=== PATIENT | female | born 1945 | race Caucasian/White ===

== ENCOUNTER 2017-02-14 11:52 | Inpatient (IN) ==
[2017-02-10 13:08] LABS: Appearance,Urine CLEAR; Bacteria,Urine 0 /hpf (0); Bilirubin,Urine NEG (NEG); Color,Urine YELLOW; Glucose,Urine (UA) NEGATIVE (NEG); Leukocyte Esterase,Urine 500 /uL (NEG); Mucus,Urine FEW /hpf (0); Nitrate,Urine NEG (NEG); Protein,Urine NEG (NEG); Specific Gravity,Urine 1.015 (1.000-1.035); Urine Blood NEG mg/dL (<0.03); Urine RBC 1 /hpf (0-1); Urine Squamous Epithelial Cell 3 /hpf (0-4); Urine WBC 5 /hpf (0-4); Urobilinogen,Urine NEG (NEG)
[2017-02-10 14:08] LABS: Basophils # (Auto) 0.1 K/mcL (0.0-0.3); Basophils % (Auto) 0.9 % (0.0-2.0); Eosinophils # (Auto) 0.1 K/mcL (0.0-0.7); Eosinophils % (Auto) 1.7 % (0.0-7.0); Granulocytes % (Auto) 60.2 % (38.0-78.0); Lymphocytes # (Auto) 1.5 K/mcL (1.5-4.8); Lymphocytes % (Auto) 26.6 % (15.5-49.0); Mean Corpuscular HGB Conc 33.4 g/dL (31.0-36.0); Mean Corpuscular Hemoglobin 28.4 pg (26.0-34.0); Monocytes # (Auto) 0.6 K/mcL (0.1-0.9); Monocytes % (Auto) 10.6 % (1.0-12.0); Platelet Count 215 K/mcL (140-440); RBC 4.97 M/mcL (4.00-5.20); Red Cell Distribution Width 13.8 % (11.5-14.5)
[2017-02-10 14:12] LABS: Blood Urea Nitrogen 18 mg/dl (8-23)
[~2017-02-14 11:52] MED LIST: CELECOXIB 200 MG CAPSULE PO SCH; KETOROLAC 30 MG, ROPIVACAINE HCL/PF 49.5 ML, EPINEPHrine 0.5 MG, 0.9 % SODIUM CHLORIDE ... IJ ONE; PREGABALIN 75 MG CAPSULE PO SCH; ceFAZolin 1 GM VIAL IV SCH; oxyCODONE 10 MG TAB.ER.12H PO SCH
[2017-02-14 13:00] LABS: Appearance,Urine CLEAR; Bacteria,Urine 0 /hpf (0); Bilirubin,Urine NEG (NEG); Color,Urine YELLOW; Glucose,Urine (UA) NEGATIVE (NEG); Leukocyte Esterase,Urine 75 /uL (NEG); Mucus,Urine MANY /hpf (0); Nitrate,Urine NEG (NEG); Protein,Urine NEG (NEG); Specific Gravity,Urine 1.025 (1.000-1.035); Urine Blood NEG mg/dL (<0.03); Urine RBC 1 /hpf (0-1); Urine Squamous Epithelial Cell 1 /hpf (0-4); Urine WBC 4 /hpf (0-4); Urobilinogen,Urine NEG (NEG)
[2017-02-14] MEDS ORDERED: GENTAMICIN SULFATE 800 MG/20 ML VIAL IR ONE (15:38)
[2017-02-14] MEDS ORDERED: EPINEPHrine 1 MG/ML ML IV ONE (16:00)
[2017-02-14] MEDS ORDERED: LIDOCAINE HCL/PF 100 MG/5 ML SYRINGE IV ONE (16:00)
[2017-02-14] MEDS ORDERED: ONDANSETRON 4 MG/2 ML VIAL IV ONE (16:00)
[2017-02-14] MEDS ORDERED: GLYCOPYRROLATE 0.2 MG/ML VIAL IV ONE (16:00)
[2017-02-14] MEDS ORDERED: MIDAZOLAM 5 MG/5 ML VIAL IV ONE (16:00)
[2017-02-14] MEDS ORDERED: PROPOFOL 200 MG/20 ML VIAL IV ONE (16:00)
[2017-02-14] MEDS ORDERED: TRANEXAMIC ACID 1,000 MG/10 ML VIAL IV ONE ×2 (16:00→17:34)
[2017-02-14] MEDS ORDERED: KETAMINE 100 MG/ML ML IV ONE (16:00)
[2017-02-14] MEDS ORDERED: BUPIVACAINE PF 0.5% 10 ML VIAL IJ ONE (16:00)
[2017-02-14] MEDS ORDERED: FLUMAZENIL 0.1 MG/ML ML IV PRN (16:50)
[2017-02-14] MEDS ORDERED: ACETAMINOPHEN 1,000 MG/100 ML BOTTLE IV ONE (16:50)
[2017-02-14] MEDS ORDERED: fentaNYL 100 MCG/2 ML VIAL IV PRN (16:50)
[2017-02-14] MEDS ORDERED: IPRATROPIUM/ALBUTEROL 3 ML AMPUL.NEB NEB PRN (16:50)
[2017-02-14] MEDS ORDERED: MEPERIDINE 25 MG/ML SYRINGE IV PRN (16:50)
[2017-02-14] MEDS ORDERED: NALOXONE HCL 0.4 MG/ML VIAL IV PRN (16:50)
[2017-02-14] MEDS ORDERED: LACTATED RINGERS 250 ML IV PRN (16:50)
[2017-02-14] MEDS ORDERED: ONDANSETRON 4 MG/2 ML VIAL IV PRN ×2 (16:50→17:34)
[2017-02-14] MEDS ORDERED: PROMETHAZINE 25 MG/ML VIAL IV PRN (16:50)
[2017-02-14] MEDS ORDERED: diphenhydrAMINE 50 MG/ML VIAL IV PRN (16:50)
[2017-02-14] MEDS ORDERED: BENZOCAINE/MENTHOL 1 LOZENGE PO PRN ×2 (16:50→17:34)
[2017-02-14] MEDS ORDERED: LACTATED RINGERS 1,000 ML IV SCH (17:00)
[2017-02-14] MEDS ORDERED: HYDROmorphone 2 MG/ML SYRINGE IV PRN (17:34)
[2017-02-14] MEDS ORDERED: FLEETS ADULT ENEMA PR PRN (17:34)
[2017-02-14] MEDS ORDERED: METHOCARBAMOL 750 MG TABLET PO PRN (17:34)
[2017-02-14] MEDS ORDERED: MAGNESIUM HYDROXIDE 30 ML ORAL.SUSP PO PRN (17:34)
[2017-02-14] MEDS ORDERED: ONDANSETRON ODT 4 MG TABLET SL PRN (17:34)
[2017-02-14] MEDS ORDERED: BISACODYL 10 MG SUPP.RECT PR PRN (17:34)
[2017-02-14] MEDS ORDERED: HYDROcodone/APAP 10/325MG TABLET PO PRN (17:34)
[2017-02-14] MEDS ORDERED: POLYETHYLENE GLYCOL 3350 17 GM PACKET PO PRN (17:34)
--- NOTE | 2017-02-14 17:34 | Brief Operative Note ---
Date of procedure: 02/14/17 Pre-op diagnosis: left knee oa Post-op diagnosis: same Procedure: left total knee arthroplasty Grafts/Implants: Yes Anesthesia: spinal Complications: none Surgeon: Arben Chappell Asset Protection Manager: Jeanine Hoover Estimated blood loss (cc): 100 Tourniquet Time (Minutes): 52 Specimens Removed/Pathology: none sent Condition: stable Disposition: PACU
[2017-02-14] MEDS: 0.9 % SODIUM CHLORIDE 1,000 ML IV SCH (18:46)
[2017-02-14] MEDS: KETOROLAC 15 MG/ML VIAL IV SCH ×2 (19:22→19:28)
[2017-02-14] MEDS ORDERED: LORazepam 1 MG TABLET PO SCH (21:00)
[2017-02-14] MEDS ORDERED: VENLAFAXINE 37.5 MG TAB.ER.24H PO SCH (21:00)
[2017-02-14] MEDS ORDERED: SENNOSIDES 1 TABLET PO SCH (21:00)
[2017-02-14] MEDS: ASPIRIN 325 MG ENTERIC COATED TABLET PO SCH (21:12)
[2017-02-14] MEDS: DOCUSATE SODIUM 100 MG CAPSULE PO SCH (21:13)
[2017-02-14] MEDS: 0.9 % SODIUM CHLORIDE 10 ML SYRINGE IV SCH (23:24)
[2017-02-14] MEDS: ceFAZolin 1 GM VIAL IV SCH (23:24)
[2017-02-15] MEDS: KETOROLAC 15 MG/ML VIAL IV SCH ×3 (01:12→14:09)
[2017-02-15] MEDS: 0.9 % SODIUM CHLORIDE 1,000 ML IV SCH (02:00)
[2017-02-15] MEDS: 0.9 % SODIUM CHLORIDE 10 ML SYRINGE IV SCH (06:22)
[2017-02-15] MEDS: ceFAZolin 1 GM VIAL IV SCH (06:22)
--- NOTE | 2017-02-15 07:02 | Discharge Summary ---
Providers - Providers Patient information: Note initiated : 02/15/17 at 7:00 am Service Date, if different from initiated Date: [] Patient: Lynn Reyes 71 y/o F admitted on 02/14/17 for Left Total Knee Arthroplasty. Chief Complaint: [s/p left TKA POD #1 s/p left TKA. Patient is doing well this morning. She ambulated ok to the bathroom and reports very minimal pain in her lower extremities. She denies CP, SOB, numbness, tingling, calf pain. She has no questions or concerns.] Discharge date: 02/15/17 Hospitalization Hospital course: Patient was brought to the OR yesterday for left TKA which went on without complication. She was admitted overnight for observation and pain control and had no events during her stay. She will d/c to home today and follow up in clinic in 2 weeks. Discharge diagnosis: knee osteoarthritis Exam - Exam Incision healing: Yes Incision draining: No Incision red: No Incision swollen: No Incision inflamed: No Clean and dry: Yes Weight bearing status: as tolerated Range of motion: b/l ankles/feet/rt knee full AROM. Lt knee 5/30 Ortho Discharge - TKA - Patient Instructions Diet: Regular Diet Activity: activity as tolerated, ambulate with assistive device, weight bearing as tolerated Total Knee Protocol: For Total Knee: Start ROM GATO with stationary bike or rocking chair. Work on gaining full extension of knee. Posterior dislocation precautions provided. Hip abductor strengthening and gait training instructions provided. Apply Cryocuff as instructed. Dressing Care: Other (May shower tomorrow- remove SANGEETA/gauze, leave Dermabond patch in place. Let water run off patch, pat dry- replace gauze/SANGEETA) - Follow Up Plan Follow Up Appointments: Jeanine Hoover PA-C [Physician Head Waitress] - 03/01/17 9:00 am Disposition: Home, Self-Care Prognosis: Fair Rehab Potential: Fair Overall status at discharge: patient is progressing back to baseline - Orders For Discharge Prescriptions: Aspirin [Ecotrin] 325 mg PO BID #60 tab.ec HYDROcodone/APAP 10/325MG [Vaughn 10/325Mg] 1 - 2 tab PO Q4HP PRN #60 tab PRN Reason: Pain Level 3-6 Additional Discharge Orders: Physical Therapy at Discharge - TKA Location: Determined By Patient Walker Location: Determined By Patient Pending Studies Resuscitation Status Full Code Diet Regular Diet Start MonFeb 14 Dinner Aspirin (Ecotrin) 325 mg PO BID [facility] Last Admin: 02/14/17 21:12 Dose: 325 mg Docusate Sodium (Colace) 100 mg PO BID [facility] Last Admin: 02/14/17 21:13 Dose: 100 mg Sodium Chloride (Sodium Chloride 0.9%) 1,000 mls @ 125 mls/hr IV .Q8H [facility] Last Admin: 02/15/17 02:00 Dose: Infusion: 02/15/17 02:00 Dose: 0 mls/hr Admin: 02/14/17 18:46 Dose: 125 mls/hr Ketorolac Tromethamine (Toradol) 15 mg IV Q6 [facility] Stop: 02/16/17 12:01 Last Admin: 02/15/17 06:22 Dose: 15 mg Admin: 02/15/17 01:12 Dose: 15 mg Admin: 02/14/17 19:28 Dose: 15 mg Lorazepam (Ativan) 1 mg PO [facility] Last Admin: 02/14/17 21:13 Dose: 1 mg Senna (Senokot) 2 tab PO [facility] Last Admin: 02/14/17 21:12 Dose: 2 tab Sodium Chloride (Saline Flush) 10 ml IV Q8 [facility] Last Admin: 02/15/17 06:22 Dose: 10 ml Admin: 02/14/17 23:24 Dose: Not Given Venlafaxine HCl (Effexor Xr) 37.5 mg PO [facility] Last Admin: 02/14/17 21:20 Dose: 37.5 mg Shift Summary 02/15/17 03:50 Shift Summary by Seble Montano Patient is a mod assist with FWW to BSC. She did not c/o pain but was given her scheduled Toradol with some relief. Patient was unable to void at beginning of shift. She has voided 300ml and 500ml with PVR 355. Last void at 0300. She has been bladder scanned per protocol. She states she has all feeling now. IV was SL right hand. She tolerated diet w/o difficulty. left knee dressing CDI with some 2+ swelling noted. Patient is pleasant and cooperative. Initialized on 02/15/17 03:50 - END OF NOTE Exam Vital signs: Temp Pulse Resp BP Pulse Ox 97.5 F 68 16 144/71 95 02/15/17 03:09 02/15/17 03:09 02/15/17 03:09 02/15/17 03:09 02/15/17 03:09 Constitutional: no acute distress Cardiovascular: other (DP/PT pulses 2+ b/l. B/l LE NVI) Neurologic: sensation intact to touch, other (motor grossly intact) Psychiatric: oriented to person, place and time
--- NOTE | 2017-02-15 07:08 | Operative Note ---
DATE OF OPERATION: 02/14/2017 PREOPERATIVE DIAGNOSIS: Degenerative joint disease, left knee. POSTOPERATIVE DIAGNOSIS: Degenerative joint disease, left knee. PROCEDURE: Left total knee arthroplasty. SURGEON: Isi Chappell M.D. GED TEACHER SURGEON: Jeanine Hoover PA-C ANESTHESIA: Spinal with LMA assist. ESTIMATED BLOOD LOSS: 100 mL COMPLICATIONS: None noted. SPECIMENS REMOVED: None. DRAINS: None. TOURNIQUET TIME: 52 minutes at 300 mmHg. IMPLANTS: DePuy CMW2 gentamycin bone cement 20 grams x4, DePuy Attune posterior stabilized size 5 left narrow, DePuy Attune tibial insert fixed bearing posterior stabilized size 5, 7 mm AOX, DePuy Attune tibial base fixed bearing size 4 cemented, DePuy Attune patella medialized dome 38 mm cemented AOX. INDICATIONS: The patient has had a long-standing history of worsening pain in the knee that has failed conservative treatment. Radiographs have confirmed advanced degenerative joint disease. After a long discussion about treatment options, the patient elected to proceed with a knee arthroplasty. The risks and benefits were discussed with the patient in detail including, but not limited to, the risks of anesthesia, problems with the heart or lungs related to anesthesia, infection, compromise or injury to the nerves and blood vessels, deep venous thrombosis, pulmonary embolism, pneumonia, continued pain after surgery, worsening pain or symptoms after surgery, swelling, loss of motion, instability, leg length discrepancy, and need for repeat surgery. DESCRIPTION OF PROCEDURE: The patient was seen in the pre-anesthesia waiting room where all questions were answered and the correct side and site were identified and marked. The patient was transferred to the operating room and administered the anesthetic and given pre-operative antibiotics. A time-out was then called. The extremity was prepped and draped, exsanguinated, and the tourniquet was inflated to 300 mmHg. A midline skin incision was then made with a standard medial parapatellar arthrotomy. Debridement of the menisci, ACL, and PCL was performed followed by balancing releases in the medial lateral plane. We then established intramedullary access to both the femur and tibia in a standard fashion. The femoral guide carter was initially placed with the distal femoral guide, pinned into place, and the distal femoral cut was performed and checked with a flat plate. We then turned our attention to the tibia. The intramedullary guide was placed with the proximal tibial cutting block. The block was appropriately positioned off the affected side, varus and valgus was checked with the extra-medullary guide, and the block was pinned into place. The proximal tibial cut was performed and the tibia was prepared for the tibial implant with appropriate rotation. The tibia, femur, and posterior compartment were debrided of osteophytes, loose bodies, and meniscal fragments We then used the gap balancing technique to balance extension with the first two cuts and good balancing was obtained with a 10 millimeter gap block. We turned our attention back to the femur and used the referencing block and implant to size appropriately. Using the gap balancing technique for the flexion space we set our rotation of the femur off the tibial cut. Anesthesia gave the patient 1 gram of Tranexamic Acid via an intravenous route. We placed the 4 in 1 cutting block and made anterior, posterior, and chamfer cuts. Box plasty cuts were then made in a standard fashion for the posterior stabilized prosthesis. We then completed osteophyte release and posterior capsule release from the posterior compartment. Trials were placed and we chose the polyethylene insert thickness that provided the best stability in all planes. With the trials in place, we did a measured resection for a resurfacing patella. We sized the patella and placed the patella trial and performed a lateral facetectomy with the saw and rongeur. Good tracking was obtained. We removed all trials, irrigated and dried all cut surfaces. We cemented the components into place including tibia, femur and patella. We placed a trial liner and held the knee in full extension with the patella compressed while the cement cured. We then removed all excess cement and placed the final polyethylene tibiofemoral component. Irrigation with 3 liters of antibiotic saline was then performed using jet-lavage. We let the tourniquet down and coagulated bleeding vessels. We injected a 100 cubic centimeter volume including Ropivacaine 49.25 cubic centimeters at 5 milligrams per cubic centimeter, Ketorolac 30 milligrams, and Epinephrine 0.5 milligrams into 100 cubic centimeters volume of normal saline. We closed the retinaculum with #2 Stratafix. We closed the subcutaneous tissue and skin in layers out to roxana in the skin. A sterile pressure dressing was applied. All needle and sponge counts were correct. The patient was transferred to the recovery room in stable condition. NOE:kenton Job ID: [id number] Doc ID: [id number] Isi Chappell MD
[2017-02-15] MEDS ORDERED: LEVOTHYROXINE 25 MCG TABLET PO SCH (07:30)
--- NOTE | 2017-02-15 07:38 | XRay Report ---
CLINICAL INFORMATION: Postop total knee prostheses COMPARISON: None. FINDINGS: Total knee prostheses is anatomically aligned. There is no osseous abnormality. Particular gas and soft tissue swelling seen as expected IMPRESSION: Negative Interpreted and Authenticated by: Arben Mandel 02/15/17
[2017-02-15] MEDS: DOCUSATE SODIUM 100 MG CAPSULE PO SCH (08:30)
[2017-02-15] MEDS: ASPIRIN 325 MG ENTERIC COATED TABLET PO SCH (08:30)
== END 2017-02-15 14:00 | disposition home or self-care (01) | DRG 470 ==
LOC: MEDSUR 11:52
PROVIDERS: ADMIT Orthopaedic Surgery Sports Medicine; ATTEND Orthopaedic Surgery Sports Medicine

== ENCOUNTER 2018-09-17 07:30 | Inpatient (IN) ==
[2018-09-12 12:14] LABS: Appearance,Urine CLEAR; Bacteria,Urine 0 /hpf (0); Bilirubin,Urine NEG (NEG); Color,Urine YELLOW; Culture Indicated,Urine NO; Glucose,Urine (UA) NEGATIVE (NEG); Ketones,Urine NEG (NEG); Leukocyte Esterase,Urine 75 /uL (NEG); Mucus,Urine FEW /hpf (0); Nitrate,Urine NEG (NEG); Protein,Urine NEG (NEG); Specific Gravity,Urine 1.018 (1.000-1.035); Urine Blood NEG mg/dL (<0.03); Urine RBC 1 /hpf (0-1); Urine Squamous Epithelial Cell 1 /hpf (0-4); Urine Transitional Epi Cells < 1 /hpf (0-2); Urine WBC 1 /hpf (0-4); Urobilinogen,Urine NEG (NEG)
[2018-09-12 12:26] LABS: Blood Urea Nitrogen 20 mg/dl (8-23); Calcium 9.8 mg/dl (8.6-10.4); Carbon Dioxide 22 mmol/L (22-30); Chloride 105 mmol/L (96-108); Glomerular Filtration Rate 73; Glucose 87 mg/dL (70-105)
[2018-09-12 12:54] LABS: Basophils # (Auto) 0 K/mcL (0.0-0.3); Basophils % (Auto) 0.5 % (0.0-2.0); Eosinophils # (Auto) 0.1 K/mcL (0.0-0.7); Eosinophils % (Auto) 2.2 % (0.0-7.0); Granulocytes % (Auto) 56.7 % (38.0-78.0); Hematocrit 41.3 % (36.0-48.0); Hemoglobin 13.1 g/dL (12.0-15.0); Lymphocytes # (Auto) 1.6 K/mcL (1.5-4.8); Lymphocytes % (Auto) 29.6 % (15.5-49.0); Mean Cell Volume 83.6 fL (80.0-100.0); Mean Corpuscular HGB Conc 31.8 g/dL (31.0-36.0); Mean Platelet Volume 10.1 fL (7.4-10.4); Monocytes # (Auto) 0.6 K/mcL (0.1-0.9); Platelet Count 233 K/mcL (140-440); RBC 4.94 M/mcL (4.00-5.20); Red Cell Distribution Width 15.1 % (11.5-14.5); WBC 5.4 K/mcL (4.5-11.0)
[~2018-09-17 07:30] MED LIST changes: +0.9 % SODIUM CHLORIDE 9 ML, KETOROLAC 30 MG, ROPIVACAINE HCL/PF 49.5 ML, EPINEPHrine 0.... IJ SCH; +ACETAMINOPHEN 500 MG TABLET PO SCH; +IPRATROPIUM/ALBUTEROL 3 ML AMPUL.NEB NEB PRN; -KETOROLAC 30 MG, ROPIVACAINE HCL/PF 49.5 ML, EPINEPHrine 0.5 MG, 0.9 % SODIUM CHLORIDE ... IJ ONE; +SCOPOLAMINE 1 PATCH PATCH TOPICAL PRN; -ceFAZolin 1 GM VIAL IV SCH; +ceFAZolin 2 GM in DEXTROSE 5% IN WATER 50 ML IV SCH
[2018-09-17] MEDS ORDERED: ONDANSETRON 4 MG/2 ML VIAL ONE (15:27)
[2018-09-17] MEDS ORDERED: MIDAZOLAM 2 MG/2 ML VIAL ONE (15:27)
[2018-09-17] MEDS ORDERED: DEXAMETHASONE 10 MG/ML VIAL ONE (15:27)
[2018-09-17] MEDS ORDERED: KETAMINE 10 MG/ML ML ONE (15:27)
[2018-09-17] MEDS ORDERED: LIDOCAINE HCL/PF 100 MG/5 ML SYRINGE IV ONE (15:27)
[2018-09-17] MEDS ORDERED: ePHEDrine 50 MG/ML AMPUL IV ONE (15:27)
[2018-09-17] MEDS ORDERED: PROPOFOL 200 MG/20 ML VIAL IV ONE (15:27)
[2018-09-17] MEDS ORDERED: GENTAMICIN SULFATE 800 MG/20 ML VIAL IR ONE (15:51)
--- NOTE | 2018-09-17 17:02 | Brief Operative Note ---
Date of procedure: 09/17/18 Pre-op diagnosis: Right knee djd severe Post-op diagnosis: same Procedure: Right tka with nanda robot Grafts/Implants: Yes Anesthesia: ZHANE Surgeon: Pete Allred Seo Intern: Edawrd Britton Estimated blood loss (cc): 51 Tourniquet Time (Minutes): 56 Specimens Removed/Pathology: none sent Condition: stable Disposition: PACU
[2018-09-17] MEDS ORDERED: BISACODYL 10 MG SUPP.RECT PR PRN (17:03)
[2018-09-17] MEDS ORDERED: ACETAMINOPHEN 325 MG TABLET PO PRN (17:03)
[2018-09-17] MEDS ORDERED: MAGNESIUM HYDROXIDE 30 ML ORAL.SUSP PO PRN (17:03)
[2018-09-17] MEDS ORDERED: HYDROmorphone 2 MG/ML VIAL IV PRN (17:03)
[2018-09-17] MEDS ORDERED: TRANEXAMIC ACID 1,000 MG/10 ML VIAL IV ONE (17:03)
[2018-09-17] MEDS ORDERED: TEMAZEPAM 15 MG CAPSULE PO PRN (17:03)
[2018-09-17] MEDS ORDERED: BENZOCAINE/MENTHOL 1 LOZENGE PO PRN ×2 (17:03→18:07)
[2018-09-17] MEDS ORDERED: ONDANSETRON 4 MG/2 ML VIAL IV PRN ×2 (17:03→18:07)
[2018-09-17] MEDS ORDERED: FLEETS ADULT ENEMA PR PRN (17:03)
[2018-09-17] MEDS ORDERED: POLYETHYLENE GLYCOL 3350 17 GM PACKET PO PRN (17:03)
[2018-09-17] MEDS ORDERED: METHOCARBAMOL 1,000 MG/10 ML VIAL IV PRN (18:07)
[2018-09-17] MEDS ORDERED: FLUMAZENIL 0.1 MG/ML ML IV PRN (18:07)
[2018-09-17] MEDS ORDERED: fentaNYL 100 MCG/2 ML VIAL IV PRN (18:07)
[2018-09-17] MEDS ORDERED: LACTATED RINGERS 250 ML IV PRN (18:07)
[2018-09-17] MEDS ORDERED: MEPERIDINE 25 MG/ML SYRINGE IV PRN (18:07)
[2018-09-17] MEDS ORDERED: NALOXONE HCL 0.4 MG/ML VIAL IV PRN (18:07)
[2018-09-17] MEDS ORDERED: IPRATROPIUM/ALBUTEROL 3 ML AMPUL.NEB NEB PRN (18:07)
[2018-09-17] MEDS ORDERED: LACTATED RINGERS 1,000 ML IV SCH (18:15)
[2018-09-17] MEDS: 0.45 % SODIUM CHLORIDE 1,000 ML IV SCH (18:50)
--- NOTE | 2018-09-17 18:54 | XRay Report ---
CLINICAL INFORMATION: Post-Op Total Knee COMPARISON: None. FINDINGS: Total knee prostheses is anatomically aligned. No osseous abnormality. Soft tissue swelling. IMPRESSION: Negative Interpreted and Authenticated by: Arben Mandel 09/17/18
[2018-09-17] MEDS: KETOROLAC 15 MG/ML VIAL IV SCH ×2 (20:26→23:35)
[2018-09-17] MEDS: DOCUSATE SODIUM 100 MG CAPSULE PO SCH (20:27)
[2018-09-17] MEDS: ASPIRIN 325 MG ENTERIC COATED TABLET PO SCH (20:27)
[2018-09-17] MEDS ORDERED: SENNOSIDES 1 TABLET PO SCH (21:00)
[2018-09-17] MEDS: oxyCODONE/APAP 5/325MG TABLET PO PRN (21:47)
[2018-09-17] MEDS: ceFAZolin 1 GM VIAL IV SCH (23:34)
[2018-09-17] MEDS: 0.9 % SODIUM CHLORIDE 10 ML SYRINGE IV SCH (23:35)
[2018-09-18] MEDS: oxyCODONE/APAP 5/325MG TABLET PO PRN ×4 (03:31→15:40)
[2018-09-18] MEDS: 0.45 % SODIUM CHLORIDE 1,000 ML IV SCH ×2 (03:35→14:27)
[2018-09-18] MEDS: ceFAZolin 1 GM VIAL IV SCH (06:05)
[2018-09-18] MEDS: KETOROLAC 15 MG/ML VIAL IV SCH ×2 (06:05→11:07)
[2018-09-18] MEDS: 0.9 % SODIUM CHLORIDE 10 ML SYRINGE IV SCH ×2 (06:06→14:29)
--- NOTE | 2018-09-18 06:47 | Orthopedic Progress Note ---
Subjective Patient information: Note initiated : 09/18/18 at 6:45 am Service Date, if different from initiated Date: [] Patient: Lynn Reyes 73 y/o F admitted on 09/17/18 for Right Total Knee Arthroplasty [facility] . Chief Complaint: [right knee pain] Interval history: Pt is a 73 yo female POD#1 following Right TKA. OVerall doing well this AM. Using CPM machine currently. Has been up walking using the walker. Denies SOB, CP, N/V, abd pain, calf tenderness. Pertinent ROS: negative except per HPI. Objective Vital signs: Vital Signs Temp Pulse Resp BP BP Pulse Ox 09/18/18 06:44 93 09/18/18 03:33 97.3 F 83 12 124/70 95 09/17/18 22:07 96.7 F L 76 12 131/68 96 09/17/18 21:33 79 136/76 95 09/17/18 20:32 72 148/71 97 09/17/18 20:02 73 149/73 94 09/17/18 19:32 74 154/73 92 09/17/18 19:17 65 148/81 94 09/17/18 19:02 68 154/76 83 L 09/17/18 18:47 65 162/72 94 09/17/18 18:32 96.3 F L 64 12 139/76 97 09/17/18 18:22 68 19 132/61 98 09/17/18 18:12 67 16 146/62 100 09/17/18 18:02 72 16 143/62 100 09/17/18 17:52 73 12 136/63 100 09/17/18 17:47 75 21 138/67 100 09/17/18 17:42 82 16 145/63 91 09/17/18 17:37 97.4 F 86 14 145/63 95 09/17/18 11:00 98.1 F 69 18 112/73 94 Intake and Output 09/17/18 09/18/18 09/18/18 21:59 05:59 13:59 Intake Total 1850 1115 Output Total 645 400 Balance 1205 715 Intake: IV 875 Sodium Chloride 0.45% 1,000 ml 875 @ 100 mls/hr IV .Q10H [facility] Rx#: [id number] Oral 240 IV - Manual Only 1850 Output: Urine Catheter Amount 600 Void Amount 400 Emesis 25 Estimated Blood Loss 20 Other: Urine Appearance Clear Straight Clear Urine Color Dark Yellow Straight Dark Yellow Urine Odor Normal # Voids 1 Weight 188 lb Intake & Output: Intake & Output 09/17/18 09/18/18 09/18/18 21:59 05:59 13:59 Intake Total 1850 1115 Output Total 645 400 Balance 1205 715 Weight 188 lb Intake: IV 875 Sodium Chloride 0.45% 1,000 ml 875 @ 100 mls/hr IV .Q10H [facility] Rx#: [id number] Oral 240 IV - Manual Only 1850 Output: Urine Catheter Amount 600 Void Amount 400 Emesis 25 Estimated Blood Loss 20 Other: Urine Appearance Clear Straight Clear Urine Color Dark Yellow Straight Dark Yellow Urine Odor Normal # Voids 1 Dressing: Yes clean, Yes dry, Yes intact Weight bearing status: as tolerated Neurological exam IM: Yes alert, Yes oriented X3 Extremities exam IM: No calf tenderness, Yes normal capillary refill, Yes normal inspection, No Alberto's sign, Yes neurovascular intact - Labs CBC & BMP: 09/12/18 09:32 09/12/18 09:32 Labs: 09/18/18 09/12/18 04:40 09:32 Hgb 13.1 Hct Pending 41.3 Assessment and Plan - Narrative A/P Narrative: Pt is 73 yo female POD #1 following Right TKA. -Plan for DC home today. -WBAT -ASA 325 mg for 30 days. -Pain med rx at dc. -CPM ordered. -PT as prescribed. -F/u with orthopaedics in 2 weeks for wound check.
--- NOTE | 2018-09-18 06:50 | Discharge Summary ---
Providers - Providers Patient information: Note initiated : 09/18/18 at 6:48 am Service Date, if different from initiated Date: [] Patient: Lynn Reyes 73 y/o F admitted on 09/17/18 for Right Total Knee Arthroplasty [facility] . Chief Complaint: Right knee pain. Date of admission: 09/17/18 Discharge date: 09/18/18 Hospitalization Hospital course: Pt is 73 yo female POD #1 following Right TKA. Overall hospital course unremar kable. Vitals remain stable. Has been ambulating with walker. Pain is managed. Discharge diagnosis: s/p right TKA Exam - Exam Incision healing: Yes Incision draining: No Clean and dry: Yes Weight bearing status: as tolerated Ortho Discharge - TKA - Patient Instructions Diet: Regular Diet Activity: activity as tolerated, ambulate with assistive device, weight bearing as tolerated Total Knee Protocol: For Total Knee: Start ROM GATO with stationary bike or rocking chair. Work on gaining full extension of knee. Apply Cryocuff as instructed. Dressing Care: Other (may shower with dermabond patch in place.) Additional Dressing Instructions: keep incision clean and dry. - Follow Up Plan Follow Up Appointments: Moises Hassan PA-C [Physician Manager Transition] - 10/02/18 10:40 am Disposition: Home, Self-Care Prognosis: Good Rehab Potential: Good I certify that the patient requires SNF services: No Overall status at discharge: patient is progressing back to baseline Pending Studies Resuscitation Status Full Code Diet Regular Diet Start MonSep 17 Lunch Aspirin (Ecotrin) 325 mg PO BID [facility] Last Admin: 09/17/18 20:27 Dose: 325 mg Documented by: VIVEK Docusate Sodium (Colace) 100 mg PO BID [facility] Last Admin: 09/17/18 20:27 Dose: 100 mg Documented by: VIVEK Sodium Chloride (Sodium Chloride 0.45%) 1,000 mls @ 100 mls/hr IV .Q10H [facility] Last Admin: 09/18/18 03:35 Dose: Not Given Documented by: Infusion: 09/18/18 03:35 Dose: 0 mls/hr Documented by: Admin: 09/17/18 18:50 Dose: 100 mls/hr Documented by: VIVEK Ketorolac Tromethamine (Toradol) 15 mg IV Q6 [facility] Stop: 09/19/18 12:01 Last Admin: 09/18/18 06:05 Dose: 15 mg Documented by: Admin: 09/17/18 23:35 Dose: 15 mg Documented by: Admin: 09/17/18 20:26 Dose: 15 mg Documented by: VIVEK Ondansetron HCl (Zofran) 4 mg IV Q4HP PRN PRN Reason: Nausea And Vomiting Last Admin: 09/17/18 18:50 Dose: 4 mg Documented by: VIVEK Oxycodone/Acetaminophen (Percocet 5-325 Mg) 0 tab PO Q4HP PRN PRN Reason: PAIN LEVEL 3-6 Last Admin: 09/18/18 03:31 Dose: 1 tab Documented by: Admin: 09/17/18 21:47 Dose: 1 tab Documented by: VIVEK Senna (Senokot) 2 tab PO HS [facility] Last Admin: 09/17/18 20:27 Dose: 2 tab Documented by: VIVEK Sodium Chloride (Saline Flush) 10 ml IV Q8 [facility] Last Admin: 09/18/18 06:06 Dose: 10 ml Documented by: Admin: 09/17/18 23:35 Dose: Not Given Documented by: VIVEK Temazepam (Restoril) 15 mg PO [facility] PRN PRN Reason: Insomnia Last Admin: 09/17/18 23:42 Dose: 15 mg Documented by: VIVEK Shift Summary 09/18/18 05:01 Shift Summary by Mary Tiwari Slept off & on for the night. Has been up to the BR w/FWW & SBA, voiding well. Gait steady w/minimal pain when up. Pain meds given twice, keeping pain 4/10. CPM on for about 2 hours, up to 50 degrees. Should d/c today. Initialized on 09/18/18 05:01 - END OF NOTE
--- NOTE | 2018-09-18 06:54 | Operative Note ---
DATE OF OPERATION: 09/17/2018 PREOPERATIVE DIAGNOSIS: Right knee degenerative arthritis. POSTOPERATIVE DIAGNOSIS: Right knee degenerative arthritis. PROCEDURE: Right total knee arthroplasty using the Kade robot. SURGEON: Pete Allred MD ACCESS SERVICE REPRESENTATIVE: Edward Britton PA-C. This provider's expertise and technical skill were required throughout the case. The PARISH assisted with preoperative coordination, intraoperative retraction, wound closure, dressing and splint application, as well as postoperative documentation and care coordination. COMPLICATIONS: None. TOURNIQUET TIME: 56 minutes. ESTIMATED BLOOD LOSS: About 51 mL BLOOD PRODUCTS GIVEN: None. IMPLANTS: Size 3 components, 12 mm poly insert with a 33 mm patellar button. DESCRIPTION OF PROCEDURE: The patient was brought to the operating room and put to sleep with general LMA anesthesia. Once asleep, the patient had the right knee sterilely prepped and draped in the usual sterile fashion. Once this was done, we then confirmed the operative site by initials, consent form and x-ray. At this point we proceeded with the case once we were assured that she had been given tranexamic acid and antibiotics. Once done, we made a midline incision through a mid vastus approach. Once this was done, we registered 30 points on the femur, 30 points on the tibia, medial and lateral malleoli, registered central hip rotation. We then registered the robot after balancing the knee at 15 and 90 degrees. Once this had been done, we then brought in the robot, made the bony cuts, removed these bony fragments and punched into place the trial. Once the trial was placed we tried a 9, 11 and 12 poly. We measured this according to the robot. This seemed to be the most appropriate with a 12 mm insert. The patella was resurfaced with a 33 mm round patella. Once done, we then irrigated thoroughly and cemented into place the above-mentioned sizes. The remnants of the meniscus and any spurs were removed. Sterile bandage applied. The mid vastus approach was closed with #1 Stratafix x2 sutures. The intra-articular capsule and posterior capsule was injected with the post-injection formula. Sterile bandage was applied. The skin was closed with 2-0 Vicryl and adhesive closure. RBH:kenton Job ID: [id number] Doc ID: [id number] Pete Allred MD
[2018-09-18] MEDS ORDERED: LEVOTHYROXINE 25 MCG TABLET PO SCH (07:30)
[2018-09-18] MEDS ORDERED: ASCORBIC ACID 500 MG TABLET PO SCH (09:00)
[2018-09-18] MEDS ORDERED: VITAMIN B COMPLEX 1 CAPSULE PO SCH (09:00)
[2018-09-18] MEDS: DOCUSATE SODIUM 100 MG CAPSULE PO SCH (09:20)
[2018-09-18] MEDS: ASPIRIN 325 MG ENTERIC COATED TABLET PO SCH (09:20)
[2018-09-18] MEDS ORDERED: MULTIVIT,THER IRON,CA,FA & MIN 1 TABLET PO SCH (12:00)
== END 2018-09-18 16:55 | disposition home or self-care (01) | DRG 470 ==
LOC: MEDSUR 10:46
PROVIDERS: ADMIT Orthopaedic Surgery; ATTEND Orthopaedic Surgery

== ENCOUNTER 2019-01-28 11:54 | Inpatient (IN) ==
[2019-01-24 18:09] LABS: Appearance,Urine HAZY; Bacteria,Urine FEW /hpf (0); Bilirubin,Urine NEG (NEG); Color,Urine YELLOW; Culture Indicated,Urine NO; Glucose,Urine (UA) NEGATIVE (NEG); Ketones,Urine NEG (NEG); Leukocyte Esterase,Urine 500 /uL (NEG); Mucus,Urine FEW /hpf (0); Nitrate,Urine NEG (NEG); Protein,Urine NEG (NEG); Specific Gravity,Urine 1.025 (1.000-1.035); Urine Blood NEG mg/dL (<0.03); Urine RBC 3 /hpf (0-1); Urine Squamous Epithelial Cell 14 /hpf (0-4); Urine WBC 21 /hpf (0-4); Urobilinogen,Urine NEG (NEG)
[2019-01-24 19:59] LABS: Basophils # (Auto) 0 K/mcL (0.0-0.3); Basophils % (Auto) 0.3 % (0.0-2.0); Eosinophils # (Auto) 0.1 K/mcL (0.0-0.7); Eosinophils % (Auto) 0.9 % (0.0-7.0); Granulocytes % (Auto) 65.2 % (38.0-78.0); Hematocrit 39.5 % (36.0-48.0); Hemoglobin 12.7 g/dL (12.0-15.0); Lymphocytes # (Auto) 1.4 K/mcL (1.5-4.8); Lymphocytes % (Auto) 22.8 % (15.5-49.0); Mean Cell Volume 82.8 fL (80.0-100.0); Mean Corpuscular HGB Conc 32.2 g/dL (31.0-36.0); Mean Platelet Volume 9.3 fL (7.4-10.4); Monocytes # (Auto) 0.7 K/mcL (0.1-0.9); Monocytes % (Auto) 10.8 % (1.0-12.0); Platelet Count 253 K/mcL (140-440); Prothrombin Time 13.1 sec (11.9-14.5); RBC 4.77 M/mcL (4.00-5.20); Red Cell Distribution Width 14.9 % (11.5-14.5); WBC 6.2 K/mcL (4.5-11.0)
[2019-01-24 20:10] LABS: Blood Urea Nitrogen 17 mg/dl (8-23); Calcium 9.7 mg/dl (8.6-10.4); Carbon Dioxide 26 mmol/L (22-30); Chloride 104 mmol/L (96-108); Glomerular Filtration Rate 72; Glucose 86 mg/dL (70-105)
[2019-01-28] MEDS ORDERED: ROPIVACAINE HCL/PF 20 ML VIAL IJ ONE (13:30)
[2019-01-28] MEDS ORDERED: MIDAZOLAM 5 MG/5 ML VIAL IV ONE (13:30)
[2019-01-28] MEDS ORDERED: DEXAMETHASONE 10 MG/ML VIAL IV ONE (13:30)
[2019-01-28] MEDS ORDERED: TRANEXAMIC ACID 1,000 MG/10 ML VIAL IV ONE ×2 (13:30→15:34)
[2019-01-28] MEDS ORDERED: ONDANSETRON 4 MG/2 ML VIAL IV ONE (13:30)
[2019-01-28] MEDS ORDERED: LIDOCAINE HCL/PF 100 MG/5 ML SYRINGE IV ONE (13:30)
[2019-01-28] MEDS ORDERED: GLYCOPYRROLATE 0.2 MG/ML VIAL IV ONE (13:30)
[2019-01-28] MEDS ORDERED: PHENYLEPHRINE 10 MG/ML VIAL IV ONE (13:30)
[2019-01-28] MEDS ORDERED: PROPOFOL 200 MG/20 ML VIAL IV ONE (13:30)
[2019-01-28] MEDS ORDERED: GENTAMICIN SULFATE 800 MG/20 ML VIAL IR ONE (14:06)
[2019-01-28] MEDS ORDERED: METOPROLOL TARTRATE 5 MG/5 ML VIAL IV PRN (15:03)
[2019-01-28] MEDS ORDERED: NALOXONE HCL 0.4 MG/ML VIAL IV PRN (15:03)
[2019-01-28] MEDS ORDERED: METHOCARBAMOL 1,000 MG/10 ML VIAL IV PRN (15:03)
[2019-01-28] MEDS ORDERED: fentaNYL 100 MCG/2 ML VIAL IV PRN (15:03)
[2019-01-28] MEDS ORDERED: MEPERIDINE 25 MG/ML SYRINGE IV PRN (15:03)
[2019-01-28] MEDS ORDERED: HYDROmorphone 2 MG/ML VIAL IV PRN ×2 (15:03→15:34)
[2019-01-28] MEDS ORDERED: diphenhydrAMINE 50 MG/ML VIAL IV PRN (15:03)
[2019-01-28] MEDS ORDERED: PROMETHAZINE 25 MG/ML VIAL IV PRN (15:03)
[2019-01-28] MEDS ORDERED: ATROPINE SULFATE 0.4 MG/ML VIAL IV PRN (15:03)
[2019-01-28] MEDS ORDERED: IPRATROPIUM/ALBUTEROL 3 ML AMPUL.NEB NEB PRN (15:03)
[2019-01-28] MEDS ORDERED: ePHEDrine 50 MG/ML AMPUL IV PRN (15:03)
[2019-01-28] MEDS ORDERED: FLUMAZENIL 0.1 MG/ML ML IV PRN (15:03)
[2019-01-28] MEDS ORDERED: ONDANSETRON 4 MG/2 ML VIAL IV PRN ×2 (15:03→15:34)
[2019-01-28] MEDS ORDERED: LACTATED RINGERS 1,000 ML IV SCH (15:15)
--- NOTE | 2019-01-28 15:32 | Brief Operative Note ---
Date of procedure: 01/28/19 Pre-op diagnosis: Left knee mechanical failure Post-op diagnosis: same Procedure: Left knee tka revision all components Grafts/Implants: Yes Anesthesia: MICHAELA Surgeon: Pete Allred Crusher Loader Equipment Operator: Moises Hassan Estimated blood loss (cc): 50 Tourniquet Time (Minutes): 84 Specimens Removed/Pathology: none sent (soft tissue for high power rodríguez) Condition: stable Disposition: PACU
[2019-01-28] MEDS ORDERED: ACETAMINOPHEN 325 MG TABLET PO PRN (15:34)
[2019-01-28] MEDS ORDERED: TEMAZEPAM 15 MG CAPSULE PO PRN (15:34)
[2019-01-28] MEDS ORDERED: BISACODYL 10 MG SUPP.RECT PR PRN (15:34)
[2019-01-28] MEDS ORDERED: POLYETHYLENE GLYCOL 3350 17 GM PACKET PO PRN (15:34)
[2019-01-28] MEDS ORDERED: BENZOCAINE/MENTHOL 1 LOZENGE PO PRN (15:34)
[2019-01-28] MEDS ORDERED: MAGNESIUM HYDROXIDE 30 ML ORAL.SUSP PO PRN (15:34)
[2019-01-28] MEDS ORDERED: FLEETS ADULT ENEMA PR PRN (15:34)
--- NOTE | 2019-01-28 16:18 | Operative Note ---
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 POSTOPERATIVE DIAGNOSIS: Left mechanical failure of Attune total knee. PROCEDURE: Left total knee revision. SURGEON: Pete Allred M.D. SCREEN DOOR MAKER: Moises Hassan PA-C. The PA's assistance was required for the safe and efficient completion of the entire case. This provider's expertise and technical skill were required throughout the case. The PA assisted with preoperative coordination, intraoperative retraction, wound closure, dressing and splint application, as well as postoperative documentation and care coordination. ANESTHESIA: General LMA anesthesia. COMPLICATIONS: None. DESCRIPTION OF PROCEDURE: The patient was brought to the operating room and put to sleep with general LMA anesthesia. Once asleep, the patient had the left leg sterilely prepped and draped in the usual sterile fashion. Once done, we were able to make an incision through the prior scar, open the capsule and explore. We took tissue from the superior pouch which was sent for high-powered rodríguez. Histology showed less than 1 cell per high-powered field. We proceeded with complete revision. The femoral component was removed. The poly liner was removed. There was not very much cement on the femoral component anteriorly. The tibial component seemed to have a fair amount of cement on the component, but there appeared to be bone grown up around the front of the tibial baseplate as if there could have been settling or mechanical loosening. This was removed. We irrigated thoroughly and then we proceeded with the reimplantation of Neil components. An intramedullary reaming up to size 12, proximal reaming and then tibial baseplate with a 4 mm offset to set for rotation at 9 o'clock. This was a size 3 tibial baseplate and size 2 femur. This was then lateralized as well and this gave good alignment, very stable. We irrigated thoroughly and then placed trials. We had to tibial 5 mm augment, 5 mm augment medially on the femur, and then a 13 poly. This seemed to fit very well with full range of motion and stability through the full arc of motion. We irrigated and cleaned up around the patella itself. It was stable. We irrigated thoroughly and then cemented into place a long stem on the tibial baseplate with revision components with offset of 4 mm at the 9 o'clock position. Once done, we then placed a lateralized augment of 4 mm on the femoral side, setting rotation appropriately for the femur with a size 2 femur. This seemed to match anatomy well. We irrigated thoroughly with a 5 mm augment medially. This was also cemented into place after preparing the bony surface. A 13 poly insert was placed with a post and metal insert for stability of the post. We irrigated thoroughly and then we were able to close the capsule after thorough irrigation. We deflated the tourniquet at 83 minutes. Closed the capsule with #1 Stratafix x2 sutures. We closed the skin with 2-0 Vicryl and adhesive closure. The patient tolerated this well without complication. RBH:geovanny Job ID: [id number] Doc ID: [id number] Pete Allred MD
--- NOTE | 2019-01-28 16:56 | XRay Report ---
CLINICAL INFORMATION: Post-Op Total Knee COMPARISON: 10/27/2018. FINDINGS: Longstem total knee revision is anatomically aligned. No osseous abnormality. Soft tissue swelling as expected. IMPRESSION: Negative Interpreted and Authenticated by: Arben Mandel 01/28/19
[2019-01-28] MEDS: LACTATED RINGERS 1,000 ML IV SCH (17:40)
[2019-01-28] MEDS: KETOROLAC 15 MG/ML VIAL IV SCH ×2 (17:41→23:36)
[2019-01-28] MEDS: ASPIRIN 325 MG ENTERIC COATED TABLET PO SCH (20:59)
[2019-01-28] MEDS: DOCUSATE SODIUM 100 MG CAPSULE PO SCH (20:59)
[2019-01-28] MEDS ORDERED: SENNOSIDES 1 TABLET PO SCH (21:00)
[2019-01-28] MEDS: oxyCODONE/APAP 5/325MG TABLET PO PRN ×2 (21:00→23:37)
[2019-01-28] MEDS: ceFAZolin 1 GM VIAL IV SCH (21:06)
[2019-01-28] MEDS: 0.9 % SODIUM CHLORIDE 10 ML SYRINGE IV SCH (23:36)
[2019-01-29] MEDS: LACTATED RINGERS 1,000 ML IV SCH (02:39)
[2019-01-29] MEDS: ceFAZolin 1 GM VIAL IV SCH (04:47)
[2019-01-29] MEDS: KETOROLAC 15 MG/ML VIAL IV SCH ×2 (04:48→11:55)
[2019-01-29] MEDS: 0.9 % SODIUM CHLORIDE 10 ML SYRINGE IV SCH (04:48)
[2019-01-29] MEDS: oxyCODONE/APAP 5/325MG TABLET PO PRN (04:49)
--- NOTE | 2019-01-29 07:34 | Orthopedic Progress Note ---
Subjective Patient information: Note initiated : 01/29/19 at 7:34 am Service Date, if different from initiated Date: [] Patient: Lynn Reyes 73 y/o F admitted on 01/28/19 for Left Total Knee Arthroplasty Revision. Chief Complaint: [Pt is stable this morning on post operative day 1 without any significant concerns or complaints. Patients vital signs have remained stable. Patients dressing is dry and is grossly intact from a neurovascular and motor standpoint. Patients 10 point ROS is otherwise negative. ] Objective Vital signs: Vital Signs Temp Pulse Resp BP Pulse Ox 01/29/19 07:29 98.2 F 80 16 124/66 96 01/29/19 04:21 97.5 F 78 14 120/69 96 01/28/19 23:50 97.4 F 83 14 113/67 97 01/28/19 20:04 96.5 F L 65 14 135/70 99 01/28/19 19:55 13 95 01/28/19 19:03 63 148/75 99 01/28/19 18:34 65 145/73 97 01/28/19 17:50 80 16 147/74 96 01/28/19 17:35 73 16 138/70 98 01/28/19 17:20 74 16 138/72 98 01/28/19 17:05 96.0 F L 82 16 149/80 96 01/28/19 16:40 95 01/28/19 16:36 97.0 F 74 13 133/64 96 01/28/19 16:28 75 13 139/61 99 01/28/19 16:18 82 13 139/68 97 01/28/19 16:08 87 17 140/62 96 01/28/19 15:58 75 13 125/65 94 01/28/19 15:53 79 10 L 141/65 94 01/28/19 15:48 97.0 F 79 13 144/70 93 01/28/19 11:54 97.8 F 75 18 131/73 98 Intake and Output 01/28/19 01/29/19 01/29/19 21:59 05:59 13:59 Intake Total 2430 0 Output Total 1351 Balance 1079 0 Intake: Oral 480 0 IV - Manual Only 1950 Output: Urine Catheter Amount 1000 Straight 1000 Void Amount 250 # of times incontinent of urine 1 Estimated Blood Loss 100 Other: Meal Dinner Percent of Meal Consumed 100% Feeding Ability Assist with Tray Set Up Urine Appearance Clear Straight Clear Urine Color Bright Yellow Straight Bright Yellow Urine Odor Normal # Voids 1 Weight 186 lb 1.6 oz Intake & Output: Intake & Output 01/28/19 01/29/19 01/29/19 21:59 05:59 13:59 Intake Total 2430 0 Output Total 1351 Balance 1079 0 Weight 186 lb 1.6 oz Intake: Oral 480 0 IV - Manual Only 1950 Output: Urine Catheter Amount 1000 Straight 1000 Void Amount 250 # of times incontinent of urine 1 Estimated Blood Loss 100 Other: Meal Dinner Percent of Meal Consumed 100% Feeding Ability Assist with Tray Set Up Urine Appearance Clear Straight Clear Urine Color Bright Yellow Straight Bright Yellow Urine Odor Normal # Voids 1 Incision: Yes healing Incision clean and dry: Yes Dressing: Yes clean Weight bearing status: full Neurological exam IM: Yes motor sensory intact, Yes neurovascular intact Extremities exam IM: Yes Foot pink and warm, Yes neurovascular intact - Labs CBC & BMP: 01/29/19 05:12 01/24/19 13:54 Labs: Orthopedic Labs 01/24/19 13:54 PT 13.1 INR 1.0 APTT 40 H 01/29/19 01/24/19 05:12 13:54 Hgb 12.7 Hct 37.1 39.5 Assessment and Plan (1) History of revision of total knee arthroplasty The patient has been educated regarding dressing care, Physical Therapy recommendations, home exercises, restrictions, and follow up appointments. The patient has had all necessary DME prescribed. The patient has remained relatively stable during their hospital course. Status: Acute
--- NOTE | 2019-01-29 07:37 | Discharge Summary ---
Ortho Discharge - TKA - Patient Instructions Diet: Regular Diet Activity: activity as tolerated, weight bearing as tolerated Total Knee Protocol: For Total Knee: Start ROM GATO with stationary bike or rocking chair. Work on gaining full extension of knee. Posterior dislocation precautions provided. Hip abductor strengthening and gait training instructions provided. Apply Cryocuff as instructed. Dressing Care: May shower in 2 days, Aquacel Ag - leave on for 5 days - Problem Maintenance (1) History of revision of total knee arthroplasty Status: Acute - Follow Up Plan Follow Up Appointments: Moises Hassan PA-C [Physician Warehouse Delivery Manager] - 02/11/19 1:00 pm Disposition: Home, Self-Care Prognosis: Good Rehab Potential: Good I certify that the patient requires SNF services: No Overall status at discharge: patient is progressing back to baseline - Orders For Discharge Prescriptions: Docusate Sodium [Colace] 100 mg PO BID #60 cap Transmission Status: Pending to [facility] 2005 Aspirin [Ecotrin] 325 mg PO BID #60 tab.ec Transmission Status: Pending to [facility] 2005 oxyCODONE/APAP [Percocet 5-325 mg] 1 - 2 tab PO Q4HP PRN #75 tab PRN Reason: Pain Level 3-6 Prescription Printed
[2019-01-29] MEDS: DOCUSATE SODIUM 100 MG CAPSULE PO SCH (08:48)
[2019-01-29] MEDS: ASPIRIN 325 MG ENTERIC COATED TABLET PO SCH (08:48)
--- NOTE | 2019-01-29 11:35 | Surgical Pathology Report ---
HISTOLOGY SPECIMEN MICROSCOPIC DIAGNOSIS LEFT KNEE, ANTERIOR POUCH, EXCISION: -- FIBROADIPOSE TISSUE WITH MILD CHRONIC INFLAMMATION. -- NO SIGNIFICANT ACUTE INFLAMMATION IDENTIFIED. -- LESS THAN ONE NEUTROPHIL/hpf. (EBD:marie) INTRAOPERATIVE CONSULTATION FROZEN SECTION DIAGNOSIS ([facility] [place], [place]) LEFT KNEE, ANTERIOR POUCH, FROZEN SECTION: -- NO SIGNIFICANT ACUTE INFLAMMATION. -- LESS THAN ONE NEUTROPHIL/hpf. (EBD:sln) CLINICAL HISTORY Left knee pain. GROSS DESCRIPTION Received fresh labeled anterior pouch, is a 2 x 1.8 x 0.5 cm staley-pink to brown soft tissue fragment. A school admissions representative section is used for frozen and the remainder is submitted entirely: A1 - frozen section; A2 - remainder of the specimen. (EBD:adj) Electronically Signed by: Diane Anglin M.D.
== END 2019-01-29 14:15 | disposition home or self-care (01) | DRG 468 ==
LOC: MEDSUR 11:54
PROVIDERS: ADMIT Orthopaedic Surgery; ATTEND Orthopaedic Surgery